=== PATIENT | female | born 1950 | race Caucasian/White ===

== ENCOUNTER 2019-10-01 20:05 | Emergency (ER) | payer MEDICARE, BC ==
--- NOTE | 2019-10-01 20:24 | EDM.PDOC ---
ED HPI GENERAL MEDICAL PROBLEM - General Chief Complaint: Genitourinary Problem Stated Complaint: UTI Time Seen by Provider: 10/01/19 20:12 Source of Information: Reports: Patient History Limitations: Reports: No Limitations - History of Present Illness INITIAL COMMENTS - FREE TEXT/NARRATIVE: Pt. presents to ER with complaints of dysuria, hematuria, frequency, and urgency. She states that the symptoms started earlier today. Denies any fever or chills. No abdominal discomfort. She complains of low back pain but no worse than normal. Pt. states that she has no significant history of urinary tract infection in the past but states that she has them occasionally. Denies any nausea, vomiting, diarrhea, melena, chest pain or shortness of breath. Onset: Today Onset Date: 10/01/19 Location: Reports: Generalized, Other Quality: Reports: Burning Severity: Mild Associated Symptoms: Denies: Diaphoresis, Fever/Chills, Headaches, Malaise, Nausea/Vomiting, Rash, Shortness of Breath, Weakness - Related Data Allergies Allergy/AdvReac Type Severity Reaction Status Date / Time Penicillins Allergy Severe Hives Verified 10/01/19 20:17 Home Meds: Home Meds Calcium Carbonate/Vitamin D3 [Calcium 500 + Vit D 200 Caplet] 1 each PO BID 02/13 [History] Cholecalciferol (Vitamin D3) [Vitamin D3] 5,000 unit PO DAILY 10/01/19 [History] Fish Oil/[place]-3 Fatty Acids [Fish Oil 1,000 MG] 1 gm PO TID 10/01/19 [History] Multivit,Calc,Mins/Iron/Folic [Thera-M] 1 each PO DAILY 10/01/19 [History] Pyridoxine HCl [Vitamin B-6] 1 tab PO DAILY 10/01/19 [History] ED ROS GENERAL - Review of Systems Review Of Systems: Comprehensive ROS is negative, except as noted in HPI. ED EXAM, GENERAL - Physical Exam Exam: See Below Exam Limited By: No Limitations General Appearance: Alert, WD/WN, No Apparent Distress Throat/Mouth: Normal Inspection, Normal Lips, Normal Teeth, Normal Gums, Normal Oropharynx, Normal Voice, No Airway Compromise Head: Atraumatic, Normocephalic Neck: Normal Inspection, Supple, Non-Tender Respiratory/Chest: No Respiratory Distress, Lungs Clear, Normal Breath Sounds, No Accessory Muscle Use, Chest Non-Tender Cardiovascular: Normal Peripheral Pulses, Regular Rate, Rhythm, No Edema, No Gallop, No JVD, No Murmur, No Rub GI/Abdominal: Soft, Non-Tender, No Mass (Female) Exam: Deferred Rectal (Female) Exam: Deferred Back Exam: Normal Inspection, Full Range of Motion. No: CVA Tenderness (L), CVA Tenderness (R) Course - Vital Signs Last Recorded V/S: Last Vital Signs Temp 36.4 C 10/01/19 20:15 Pulse 88 10/01/19 20:15 Resp 14 10/01/19 20:15 BP 152/91 H 10/01/19 20:15 Pulse Ox 97 10/01/19 20:15 - Orders/Labs/Meds Orders: Active Orders 24 hr Category Date Time Status UA W/MICROSCOPIC [URIN] Stat Lab 10/01/19 20:18 Ordered Meds: Medications Discontinued Medications Generic Name Dose Route Start Last Admin Trade Name Freq PRN Reason Stop Dose Admin Trimethoprim/Sulfamethoxazole 1 packet 10/01/19 20:26 Take Home: Sulfameth/Trimet 800-160mg, 2 Pack PO 10/01/19 20:27 ONETIME ONE Departure - Departure Time of Disposition: 20:34 Disposition: Home, Self-Care 01 Clinical Impression: UTI, Urinary tract infectious disease - Discharge Information Instructions: Urinary Tract Infection, Adult, Sulfamethoxazole; Trimethoprim, SMX-TMP tablets Referrals: Rosalia Purdy DO [Primary Care Provider] - Forms: ED Department Discharge Additional Instructions: Bactrim DS 1 twice daily for 5 days Drink plenty of fluids Tylenol and ibuprofen for fever/discomfort. Recheck in clinic if not gradually improving. Sepsis Event Note - Evaluation Sepsis Screening Result: No Definite Risk - Focused Exam Vital Signs: Vital Signs Temp Pulse Resp BP Pulse Ox 10/01/19 20:15 36.4 C 88 14 152/91 H 97 Date Exam was Performed: 10/01/19 Time Exam was Performed: 20:30 - My Orders Last 24 Hours: My Active Orders 10/01/19 20:18 UA W/MICROSCOPIC [URIN] Stat - Assessment/Plan Last 24 Hours: My Active Orders 10/01/19 20:18 UA W/MICROSCOPIC [URIN] Stat Plan: Bactrim DS 1 twice daily for 5 days Drink plenty of fluids Tylenol and ibuprofen for fever/discomfort. Recheck in clinic if not gradually improving.
[2019-10-01] MEDS: Take Home: Sulfamethoxazole/Trimethoprim 800-160 MG Tab, 2 Tab Pack PO ONE (20:35)
== END 2019-10-01 20:36 | disposition home or self-care (01) ==
LOC: VM.ED 20:05 → SUPCPDRO 20:05 → VM.ED 20:36
DX: N39.0 Urinary tract infection, site not specified (principal); Z88.0 Allergy status to penicillin
CPT/HCPCS: 81001; 99283; A9270